=== PATIENT | female | born 1980 | race Caucasian/White ===

== ENCOUNTER 2021-08-11 12:01 | Emergency (ER) | payer MEDICAID ==
[~2021-08-11] VITALS: Ht 170.2 cm; Wt 91.0 kg
[2021-08-11] MEDS ORDERED: IBUP-2030 MT (12:23)
[2021-08-11] MEDS ORDERED: CYCL10TA21 MT (12:23)
[2021-08-11] MEDS ORDERED: KETOROLAC 60MG/2ML VIAL IM ONE (12:30)
[2021-08-11] MEDS ORDERED: CYCLOBENZAPRINE 10MG TABLET PO ONE (12:30)
[2021-08-11] MEDS ORDERED: HYDROCODONE/ACETAMINOPHEN 5/325MG TABLET PO ONE (12:30)
[2021-08-11 13:40] VITALS: BP 158/89
== END 2021-08-11 14:00 | disposition home or self-care (01) ==
LOC: ER 12:01
DX: S39.012A Strain of muscle, fascia and tendon of lower back, initial encounter (principal); R03.0 Elevated blood-pressure reading, without diagnosis of hypertension; V49.49XA Driver injured in collision with other motor vehicles in traffic accident, initial encounter; Y93.89 Activity, other specified; Y92.488 Other paved roadways as the place of occurrence of the external cause
CPT/HCPCS: 96372; 99283; J1885